=== PATIENT | male | born 1935 | race Caucasian/White ===

== ENCOUNTER 2023-06-02 10:13 | Outpatient (CLI) | payer OTHER | END 2023-06-02 10:14 | disposition home or self-care (01) | LOC: CSHRAD 10:13 | PROVIDERS: ATTEND Dermatology | DX: L40.0 Psoriasis vulgaris (principal); Z79.899 Other long term (current) drug therapy; A18.4 Tuberculosis of skin and subcutaneous tissue | CPT/HCPCS: 71046 ==